=== PATIENT | female | born 1965 | race Caucasian/White ===

== ENCOUNTER → 2018-04-18 18:46 | Outpatient (CLI) | payer OTHER, SELFPAY ==
--- NOTE | 2018-04-18 18:50 | DI.MRI.S_ITS ---
PROCEDURE: MR KNEE LT WO CON INDICATIONS: PAIN IN LEFT KNEE TECHNIQUE: Noncontrast sagittal PD fast spin echo and T2 fast spin echo with fat saturation, sagittal 3-D FLASH with fat saturation; coronal T1 spin echo and PD fast spin echo with fat saturation, and axial PD fast spin echo with fat saturation through the knee. COMPARISON: None. FINDINGS: Image quality: Excellent. Menisci: The medial and lateral menisci demonstrate mildly degenerated morphology and internal signal. The meniscal root ligaments appear intact. No meniscal tear is found Cruciate ligaments: The anterior and posterior cruciate ligaments appear intact. Medial structures: The medial collateral ligament appears intact but mildly edematous. The posterior oblique ligament, semimembranosus tendon insertions, oblique popliteal ligament, and meniscocapsular junction appear intact. Visualized portions of the pes anserinus tendons appear normal. No abnormal bursal fluid. Lateral structures: The lateral collateral ligament, long and short heads of the biceps femoris tendon appear intact. The popliteus tendon appears normal; the popliteofibular ligament appears intact. The posterosuperior and anteroinferior popliteomeniscal fascicles appear intact. The arcuate and fabellofibular ligaments appear intact, on either side of the lateral inferior geniculate artery. Iliotibial band appears normal. Anterior structures: The quadriceps and patellar tendons appear intact. Patellar alignment is normal. No femoral trochlear dysplasia or ventral trochlear prominence. No edema in the infrapatellar fat pad. Bones and cartilage: No bone marrow contusions or fractures. The cartilage of the medial and lateral femorotibial compartments, as well as the patellofemoral compartment, appears mildly reduced in thickness, best seen at the medial compartment. Joint space: There is a mild excess of knee joint fluid. There also is a moderate sized Nam's cyst, measuring up to 3.4 cm AP, 2.1 cm transverse and up to 7.9 cm craniocaudad. At the inferior margin of this particular Nam's cyst there is extravasation of a small amount of fluid inferiorly along intermuscular fascial planes. Normal appearing synovial plicae are incidentally noted. IMPRESSION: Mild edema along the border of the medial collateral ligament, without evidence of ligament tear. No lateral displacement of the patella is associated with this finding more mild edema tracking into the medial patellar retinaculum. Mild joint effusion, moderate-sized Nam's cyst with evidence of Nam's cyst rupture at its inferior margin allowing extravasation of small amount of joint fluid into the intermuscular fascial plane of the medial upper calf. Mild degeneration of the articular cartilage of the medial compartment with joint space thinning. No focal chondromalacia or osteochondral defect is found, however. Dictated by: Perry Kinsey M.D. on 04/19/2018 at 14:15 Approved by: Perry Kinsey M.D. on 04/19/2018 at 14:22
== END ==
PROVIDERS: Visit Provider Family Medicine
DX: M25.562 Pain in left knee (principal); M25.462 Effusion, left knee; M66.0 Rupture of popliteal cyst
CPT/HCPCS: 73721

== ENCOUNTER → 2019-04-24 06:09 | Outpatient (CLI) | payer OTHER, SELFPAY ==
--- NOTE | 2019-04-24 | DI.MRI.S_ITS ---
PROCEDURE: MR ABDOMEN WO/W CON INDICATIONS: LUMBAR RADICULOPATHY,LEFT ADRENAL MASS TECHNIQUE: Coronal HASTE, axial 2D FLASH in- and [id number]; axial breath-hold T2 FSE. Dynamic axial VIBE during the administration of contrast; post-contrast coronal VIBE or 2D FLASH with fat saturation from the hepatic dome to the iliac crests. Optional diffusion weighted imaging and ADC may be performed. COMPARISON: None. FINDINGS: Image quality: Excellent. Lung bases: No basal pleural effusions. Heart size is normal. Solid organs: Non-cirrhotic morphology. No suspicious focal lesion. Small subcentimeter simple cyst in the right lobe. Gallbladder is absent. Biliary system is non dilated. Pancreas is normal in morphology. Spleen is normal in size and enhancement. Small splenule. The subcentimeter T2 hyperintense lesion with enhancement in the mid spleen most compatible with a benign hemangioma. Left adrenal nodule or cyst measuring 4.3 x 3.3 cm, mild T2 hyperintensity, T1 isointense with signal dropout on the opposed phase. No suspicious enhancement or restricted diffusion. No right adrenal nodule. Both kidneys demonstrate normal size and enhancement, without hydronephrosis. Nodes and vessels: No retroperitoneal or mesenteric adenopathy by size criteria. Aorta and inferior vena cava are normal in size. Bowel and peritoneum: Susceptibility artifact in the upper abdomen likely related to Ham-en-Y gastric bypass. Unenhanced bowel loops are normal in caliber. No free fluid. Bones and soft tissues: No ventral hernias. Bone marrow is normal in overall signal. IMPRESSION: 1. Left adrenal nodule measuring 4.3 cm. Signal dropout on the opposed phase consistent with microscopic fat. No suspicious imaging features. Findings most compatible with a large benign adrenal adenoma. 2. No significant hepatic steatosis. Non-cirrhotic morphology. No suspicious liver lesion. 3. Subcentimeter enhancing lesion in the spleen most likely represents a benign hemangioma. Dictated by: Evelio Duron M.D. on 04/24/2019 at 9:43 Approved by: Evelio Duron M.D. on 04/24/2019 at 10:06
--- NOTE | 2019-04-24 | DI.MRI.S_ITS ---
PROCEDURE: MR LUMBAR SPINE WO CON INDICATIONS: LUMBAR RADICULOPATHY,LEFT ADRENAL MASS TECHNIQUE: Noncontrast sagittal T1 spin echo and T2 fast echo, sagittal STIR, axial T1 and T2 fast spin echo through the lumbar spine. In cases with scoliosis, additional coronal T2 fast spin echo may be performed. COMPARISON: None. FINDINGS: Image quality: Excellent. Alignment and Curvature: There is normal bony alignment. Bone Marrow: Marrow is of normal overall signal. No acute vertebral body compression fractures. Spinal Cord: Conus medullaris terminates at the L1 level. Visualized cord demonstrates normal signal and size. Paraspinous Soft Tissues: No paravertebral masses. L1-L2: Normal appearance. L2-L3: Normal appearance. L3-L4: Mildly decreased intervertebral disc space is seen. Broad-based disc bulge and bilateral facet arthrosis is noted with mild central canal stenosis and mild left-sided neuroforaminal narrowing. L4-L5: There is broad-based disc bulge and bilateral facet arthrosis. Decreased intervertebral disc space is seen. Superimposed central disc herniation is also noted causing [id number] central canal stenosis and bilateral neuroforaminal narrowing slightly worse on the left side. L5-S1: Decreased intervertebral disc space is seen. Diffuse disc bulge and bilateral facet arthrosis is noted with no significant canal stenosis or neuroforaminal narrowing. IMPRESSION: 1. Degenerative disc bulge and bilateral facet arthrosis at L3-4 through L5-S1 levels causing mild to moderate central canal stenosis and bilateral neuroforaminal narrowing as described above. 2. No marrow edema. No acute compression fracture or spondylolisthesis. Dictated by: Ghanshyam Oropeza M.D. on 04/24/2019 at 10:39 Approved by: Ghanshyam Oropeza M.D. on 04/24/2019 at 10:43
== END ==
PROVIDERS: PCP Family Medicine; Visit Provider Family Medicine
DX: M51.16 Intervertebral disc disorders with radiculopathy, lumbar region (principal); M51.17 Intervertebral disc disorders with radiculopathy, lumbosacral region; E27.9 Disorder of adrenal gland, unspecified; D73.89 Other diseases of spleen; M47.26 Other spondylosis with radiculopathy, lumbar region; M47.27 Other spondylosis with radiculopathy, lumbosacral region; Z90.49 Acquired absence of other specified parts of digestive tract
CPT/HCPCS: 72148; 74183; A9579

== ENCOUNTER 2019-09-14 11:03 | Outpatient (CLI) | payer OTHER, SELFPAY ==
[2019-09-14] VITALS (7 sets, daily range): BP systolic 106–124; BP diastolic 56–86; PULSE 65–81; RESP 16; O2SAT 97–100
--- NOTE | 2019-09-14 11:04 | DI.RAD.S_ITS ---
PROCEDURE: PAIN L INTERLAMINAR/CAUDAL INJ INDICATIONS: INTERVERTEBRAL DISC DISPLACEMENT FINDINGS: Fluoroscopic spot filming was performed to verify placement of spinal needles at the L4-L5 level(s), as labeled on the films. Appropriate location(s) of the needle tip(s) was confirmed by injection of iodinated contrast. IMPRESSION: Fluoroscopy guidance for pain management. Dictated by: Virginia Mayorga M.D. on 09/14/2019 at 13:45 Approved by: Virginia Mayorga M.D. on 09/14/2019 at 13:45
[2019-09-14] MEDS: fentaNYL 100 MCG/2 ML INJ 50 MCG IV (12:31)
[2019-09-14] MEDS: MIDAZOLAM 5 MG/5 ML VIAL IV (12:31)
[2019-09-14] MEDS: BUPIVACAINE 0.25% (PF) VIAL 2 ML INJ (12:36)
[2019-09-14] MEDS: DEXAMETHASONE 10 MG/ML VIAL 20 MG INJ (12:36)
[2019-09-14] MEDS: IOPAMIDOL 15 ML VIAL 3 ML INJ (12:36)
[2019-09-14] MEDS: BETAMETHASONE 30 MG/5 ML MDV 6 MG INJ (12:36)
--- NOTE | 2019-09-14 12:40 | PC.NURSE ---
ASSISTING PT OFF TABLE AND TRANSPORTING TO POST PROC AREA IN STABLE CONDITION. PASSING RN CARE OF PT OFF TO CLEMENTE Leblanc RN.
--- NOTE | 2019-09-14 12:41 | P.PCN_ITS ---
Procedures Date/Time Date of procedure: 09/14/19 Time of procedure: 12:41 General Procedure description: PROVIDER: Luke Melendez DO Operative Note PREOP DIAGNOSIS 1. HNP WITH RADICULAR FEATURES, 2. MULTILEVEL CENTRAL STENOSIS, POST OP DIAGNOSIS 1. HNP WITH RADICULAR FEATURES, 2. MULTILEVEL CENTRAL STENOSIS PROCEDURES 1. FLUORSCOPICALLY GUIDED CONTRAST CONTROLLED INTERLAMINAR EPIDURAL STEROID INJECTION -L4/5 PHYSICIAN: Luke Melendez DO INDICATIONs: Jo-Ann is referred by for treatment of Bilateral Foraminal Stenosis R>L LE symptoms. FINDINGS Multilevel Central Spinal Stenosis with Nerve Root Compression DESCRIPTION OF PROCEDURE Fluoroscopically guided, contrast-controlled L4/5 translaminar epidural steroid injection. Following review of allergy and review of potential side effects and complications, including, but not necessarily limited to, infection, allergic reaction, local tissue breakdown, temporary as well as permanent nerve injury, paralysis, stroke and possible , the patient indicated that the patient understood and agreed to proceed. An informed consent document was signed by the patient, witnessed by a nurse, and placed in the patient's chart. Additionally, other treatment options including modalities, medications, and physical therapy were reviewed with the patient. After review of previous anaesthesic history and IV conscious sedation the patient was deemed safe to proceed with todays procedure with IV conscious sedation as ASA class II designation. Safety time-out was performed to confirm patient ID, procedure to be performed and site of procedure. IV sedation was accomplished with a combination of 2mg of Versed and 50mcg of Fentanyl was administered by the RN after DO order, titrated to patient comfort during the course of the procedure while the patient remained responsive to all verbal commands In the prone position, following sterile prep and drape of the lumbar region, the L4/5 translaminar space was identified fluoroscopically. The skin was anesthetized via a 25-gauge, 1.5-inch needle with 1% lidocaine solution. At this point, a 22-gauge short bevel spinal needle was atraumatically introduced and advanced under fluoroscopic guidance into the region of the L4/5 translaminar space. Depth was confirmed on lateral view. Radiological data, including multiple fluoroscopic views of the lumbar spine, reveal a spinal needle at the L4/5 translaminar space. Lateral views then show placement of the needle in the epidural space. Subsequent views show contrast material flowing superiorly and inferiorly in the epidural space. No vascular or intrathecal uptake is observed. At this point, using loss of resistance technique with saline and air, the epidural space was entered. This was confirmed following negative aspiration with injection of approximately 1.5 cc of Isovue 200, showing excellent epidural flow without vascular or intrathecal uptake. At this point, 1 cc of 1% lidocaine solution combined with 3cc or 20mg of dexamethasone and 6mg betamethasone was injected without incident. The patient tolerated the procedure well without signs or symptoms of complications prior to transfer to the recovery area continued monitoring without incident. The patient was then transferred to the recovery area where they were observed for an appropriate period of time after the injection. The patient reported a VAS score of 6 prior to the procedure and a post- procedure VAS of 0. Total Fluoroscopy Time: 5sec Total Conscious Sedation Time: 24min POST OP INSTRUCTIONS The patient was provided a Pain Log to continue to record their response to the target-specific procedure prior to follow-up visit with their referring physician. Additionally, specific post-injection care instructions and a contact number to our office were provided if concerns arise regarding possible complications associated with the procedure are suspected. Luke Melendez, Complications: none
--- NOTE | 2019-09-14 12:57 | PC.NURSE ---
1255: Received patient post procedure by Suzette GEE, awake, alert, pleasantly talkative. VSS upon arrival.
== END 2019-09-14 13:06 | disposition home or self-care (01) ==
PROVIDERS: PCP Family Medicine; Referring Provider Family Medicine; Visit Provider Physical Medicine & Rehabilitation
DX: M51.16 Intervertebral disc disorders with radiculopathy, lumbar region (principal); M48.061 Spinal stenosis, lumbar region without neurogenic claudication
CPT/HCPCS: 62323; 99152; J0702; J1100; J2250; J3010

== ENCOUNTER → 2019-12-14 10:06 | Outpatient (CLI) | payer OTHER, SELFPAY ==
[2019-12-14 10:48] LABS: Blood Urea Nitrogen 12 mg/dL (7-17); Estimated Glomerular Filt Rate > 60.0 mL/min (>60)
--- NOTE | 2019-12-14 10:54 | DI.CT.S_ITS ---
PROCEDURE: CT ABDOMEN WO/W CON INDICATIONS: SURVEILLANCE ADRENAL ENLARGMENT TECHNIQUE: Noncontrast 3 mm thick sections acquired from the diaphragms to the iliac crests. After the administration of intravenous contrast, 3 mm thick venous-phase and 15-minute delayed images acquired from the diaphragms to the iliac crests. For radiation dose reduction, the following was used: automated exposure control, adjustment of mA and/or kV according to patient size. COMPARISON: , CT, CT ABDOMEN ADRENAL PROTOCOL, 08/30/2019, 11:57. , CT, CT ABDOMEN ADRENAL PROTOCOL, 06/30/2019, 9:54. [facility], MR, MR ABDOMEN WO/W CON, 04/24/2019, 7:21. FINDINGS: Image quality: Excellent. Lung bases: Lung bases are clear. Heart size is normal. Small hiatal hernia. Adrenal glands: There is a 3.2 x 4.1 x 3.0 cm mass involving the left adrenal gland, demonstrating no interval change in size since 04/24/2019. The mass demonstrates CT density 28.8 HU on precontrast images, 33.2 HU on arterial images and 31.2 on delayed images. On the comparison MRI, there is a signal drop-off on a out-phase images, suggesting presence of microscopic fat. There is a subtle thin rim enhancement of the mass. Solid organs: Liver is normal in size and enhancement. Gallbladder is surgically absent. Biliary system is non dilated. Pancreas enhances normally. Spleen is normal in size and enhancement. Kidneys are normal in size and enhancement. No hydronephrosis or nephrolithiasis. Peritoneum and bowel: Postsurgical changes related to gastric bypass. Unenhanced bowel loops are normal in caliber and wall thickness. No free fluid or air. Nodes and vessels: No retroperitoneal or mesenteric adenopathy by size criteria. Aorta and inferior vena cava are normal in size. Miscellaneous: No ventral hernias. Bones: No suspicious bony lesions. No vertebral body compression fractures. IMPRESSION: 1. Stable 3.2 x 4.1 x 3.0 cm left adrenal mass since . The mass demonstrates benign features on MRI suggesting a cyst or adenoma. 2. Gastric bypass and cholecystectomy. Dictated by: Virginia Mayorga M.D. on 12/14/2019 at 11:49 Approved by: Virginia Mayorga M.D. on 12/14/2019 at 13:42
== END ==
PROVIDERS: PCP Family Medicine; Referring Provider Urology; Visit Provider Urology
DX: D35.02 Benign neoplasm of left adrenal gland (principal); Z90.49 Acquired absence of other specified parts of digestive tract; Z98.84 Bariatric surgery status
CPT/HCPCS: 36415; 74170; 82565; 84520; Q9967